=== PATIENT | male | born 1990 | race Caucasian/White ===

== ENCOUNTER 2018-04-15 15:31 | Emergency (ER) | payer SELFPAY ==
[2018-04-15 15:47] VITALS: BP 146/76
--- NOTE | 2018-04-15 16:17 | EDPHY ---
H & P Time Seen by Provider: 04/15/18 16:01 HPI/ROS: CHIEF COMPLAINT: Bumps on the genitals HISTORY OF PRESENT ILLNESS: 28-year-old man had oral and anal sex with another man 14 months ago and presents for evaluation of two bumps on his penis and scrotum. About 2 months after the encounter, about 12 months ago, he noticed the skin lesions and he started having some burning with urination. He was treated at urgent care at that time with azithromycin but no real change in symptoms except for decreased and some discharge that he had at the time, the discharge is now gone. There is 1 small bump on the left lateral surface of his penis and 1 just at the top of his scrotum on the left on the underside of his penis. Not red and no change in size over the past 8 months. He still has intermittent burning with urination but no urethral discharge. REVIEW OF SYSTEMS: No scrotal pain. No fever or chills. No dizziness or syncope. Denies skin rash, headache, abdominal pain, visual symptoms, or any other acute medical complaints. PAST MEDICAL HISTORY: Negative Social history: Denies drug use General Appearance: Alert and conversant, cooperative. Patient is ambulatory not ataxic with normal speech. He has normal scrotum and testicles, and no hernia appreciated. No redness or swelling and no skin rash around the perineum. He has a 2 mm genital wart on the left side of the base of his penis and a 4 mm one with a narrower stalk at the base of his penis junction with the superior portion of the scrotum. No chancre. No ulcer. No urethral discharge. Emergency Department course/MDM: I offered the patient testing for STD with his persistent 1 year of dysuria. I think UTI or pyelonephritis would be unlikely. Referral to [facility]. I warned him this follow-up is mandatory for the evaluation of possible syphilis exposure from more than 1 year ago, or other infection or STD, and treatment if necessary. Risk of not following up includes but not limited to permanent disability, worsening infection, . Patient states he understands and declines urine testing here and wants to do all of his follow- up at [facility] next week. Smoking Status: Former smoker Constitutional: Initial Vital Signs Temperature (C) 36.7 C 04/15/18 15:44 Heart Rate 96 04/15/18 15:44 Respiratory Rate 18 04/15/18 15:44 Blood Pressure 146/76 H 04/15/18 15:44 O2 Sat (%) 94 04/15/18 15:44 O2 Delivery Mode Room Air MDM/Departure - Depart Disposition: Home, Routine, Self-Care Clinical Impression: Genital warts Condition: Good Instructions: Genital Warts (ED) Referrals: Javier Hunter MD [Medical Doctor] - As per Instructions (Please call on Wednesday to follow up with [facility] both for your genital warts and your possible exposure to syphilis, and burning with urination)
== END 2018-04-15 16:30 | disposition home or self-care (01) ==
LOC: CED 15:31
DX: A63.0 Anogenital (venereal) warts (principal); Z87.891 Personal history of nicotine dependence